=== PATIENT | female | born 1970 | race Caucasian/White ===

== ENCOUNTER 2024-01-24 00:17 | Day surgery (SDC) | payer BC, SELFPAY ==
[2024-01-04 08:49] VITALS: BMI 17.4
--- NOTE | 2024-01-22 15:35 | PC.NURSE ---
Patient called regarding upcoming procedure. Reviewed preop instructions, appointment times, and procedure prep.
[2024-01-24 12:40] VITALS: BP 124/68; PULSE 81; RESP 16; TEMP 36.4; O2SAT 100; BMI 15.9
[2024-01-24] MEDS: LACTATED RINGERS 1,000 ML 150 ML IV CONT (13:02)
--- NOTE | 2024-01-24 13:28 | P.PNAN_ITS ---
Anes - Initial Pre Proc Eval Procedure: Operation Date: 01/24/24 14:00 Proposed Procedures p Screening Colonoscopy - Sabas Moore MD Date/Time: 01/24/24 13:28 Surgeon: Sabas Moore MD Pre Op Diagnosis: neoplasm screening Patient Data Age: 53 Gender: F Height: 1.68 m Weight: 44.8 kg Last Vital Signs Temp 36.4 C L 01/24/24 12:40 Pulse 81 01/24/24 12:40 Resp 16 01/24/24 12:40 BP 124/68 01/24/24 12:40 Pulse Ox 100 01/24/24 12:40 O2 Del Method Room Air 01/24/24 12:40 Allergies Allergy/AdvReac Type Severity Reaction Status Date / Time No Known Allergies Allergy Verified 01/24/24 12:46 Home Medications Medication Instructions Recorded Confirmed Type No Home Medications 01/04/24 01/24/24 History Patient hx anesthesia problems: none Family hx anesthesia problems: none Results Review: All pre-operative results and documents have been reviewed as part of the pre-operative evaluation. 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 Gender identity (if verbalized by the patient): Female Sexual Orientation (if Verbalized by the Patient): Straight or Heterosexual Spiritual care concerns: No Anes - Eval Final PreProcedure Day of Procedure 01/24/24 13:28 Patient weight: thin Heart: regular rate and rhythm Lungs: clear to auscultation Airway: Mallampati scale class II Neurological: alert and oriented Last oral intake: >/= 8 hours ASA classification: II Emergent: no Anesthetic plan: proceed Anesthesia type and monitoring: general GIVS and standard monitoring Results Review: All pre-operative results and documents have been reviewed as part of the pre- operative evaluation. Informed Consent: The patient's anesthetic plan and its attendant risks and benefits were discussed with the patient/family/POA. Questions were solicited and answers provided to the satisfaction of the patient/family/POA.
--- NOTE | 2024-01-24 13:44 | PM.HPGS ---
History of Present Illness History of Present Illness Consent: Risks, benefits, and alternatives have been discussed and questions answered. Patient agrees to proceed with procedure. Chief complaint: neoplasm screening Narrative: Dixie Herzog is a 53 year old female here for first screening colonoscopy Review of Systems Constitutional: Constitutional: Denies headache(s) and Denies weakness Eyes: Eyes: Denies blurry vision ENT: Reports Normal hearing present, Denies headache(s) and Denies neck pain Cardiovascular: Cardiovascular: Denies chest pain and Denies dyspnea Respiratory: Respiratory: Denies dyspnea Gastrointestinal: Gastrointestinal: Reports no additional gastrointestinal complaints Genitourinary: Genitourinary: Denies dysuria Musculoskeletal: Musculoskeletal: Denies neck pain Integumentary/Breasts: Skin/Breast: Denies dry skin Neurologic: Reports Normal hearing present, Denies headache(s) and Denies weakness Psychiatric: Psychiatric: Denies anxiety Endocrine: Endocrine: Denies change in body appearance Hematologic/Lymphatic: Hematologic/Lymphatic: Denies easy bleeding Allergic/Immunologic: Allergic/Immunologic: Denies urticaria PMF Past Medical History Medical History MDD (major depressive disorder) Social History Social History Social History: Smoking status: Never smoker Second hand tobacco smoke exposure: No Alcohol intake: never Substance use: never Substance use type: does not use Lack of Transportation: No Lack of Food: Never True Current Housing: I Have Housing Concerned About Future Housing: No Difficulty Paying for Meds: No Currently Unemployed: No Education: Master's Degree or Higher Difficulty w/ Childcare or Family Care: No Living arrangements: with family 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 Gender identity (if verbalized by the patient): Female Sexual Orientation (if Verbalized by the Patient): Straight or Heterosexual Spiritual care concerns: No Meds Home Medications and Allergies Home Medications Medication Instructions Recorded Confirmed Type No Home Medications 01/04/24 01/24/24 History Allergies Allergy/AdvReac Type Severity Reaction Status Date / Time No Known Allergies Allergy Verified 01/24/24 12:46 Vital Signs Vital Signs - 24 hr 01/24/24 12:40 Temperature 97.5 F L Pulse Rate 81 Respiratory Rate 16 Blood Pressure 124/68 Pulse Oximetry 100 Oxygen Delivery Room Air Exam Const: General: comfortable and no acute distress HENMT: Face/Nose/Sinus: Normal nares present Eyes: General: appearance normal, both eyes and all related structures Neck: Neck: no JVD Resp: Auscultation: clear to auscultation bilaterally Cardio: Rate: regular rate Rhythm: regular rhythm GI: Inspection: non-distended GI Palp: Yes Soft to palpation Skin: General skin exam: normal color Neuro: General: gait normal Speech: normal speech Extrem: General: normal to inspection Psych: Mental Status: mental status grossly normal Assessment and Plan Assessment and plan (1) Colon cancer screening: Code(s): Z12.11 - Encounter for screening for malignant neoplasm of colon Status: Acute Assessment and Plan: colonoscopy
[2024-01-24 14:08] VITALS: BP 98/64; PULSE 67; RESP 19; O2SAT 100
[2024-01-24 14:18] VITALS: BP 99/67; PULSE 70; RESP 20; O2SAT 99
[2024-01-24 14:28] VITALS: BP 105/75; PULSE 62; RESP 24; O2SAT 100
== END 2024-01-24 14:33 | disposition home or self-care (01) ==
PROVIDERS: PCP Family Medicine; Visit Provider Internal Medicine Gastroenterology
PROC: 0DJD8ZZ Inspection of Lower Intestinal Tract, Via Natural or Artificial Opening Endoscopic (ICD-10-PCS; CPT 45378; principal; 2024-01-24 14:00)
DX: Z12.11 Encounter for screening for malignant neoplasm of colon (principal); F32.9 Major depressive disorder, single episode, unspecified
CPT/HCPCS: 45378; J2704; J7120

== ENCOUNTER 2024-04-30 15:03 | Outpatient (CLI) | payer BC, SELFPAY ==
--- NOTE | ~2024-04-30 | MM_ITS ---
EXAMINATION: MM screening addie BI w tyrone HISTORY: Screening TECHNIQUE: Craniocaudal and mediolateral oblique 3-D tomosynthesis images were obtained and synthetic 2-D images were generated. CAD analysis was submitted and interpreted. COMPARISON: 03/26/2018 BREAST PARENCHYMAL COMPOSITION: Dense: The breasts are extremely dense, which lowers the sensitivity of mammography. FINDINGS: There is no evidence of suspicious mass, calcification, or architectural distortion to sugg est malignancy in either breast. There has been no suspicious interval change. IMPRESSION: 1. No mammographic evidence of malignancy. 2. Recommend routine screening mammography in one year. BI-RADS Category 1: Negative Reviewed, dictated and finalized at location B.
== END 2024-04-30 15:04 ==
PROVIDERS: PCP Family Medicine; Visit Provider Family Medicine
DX: Z12.31 Encounter for screening mammogram for malignant neoplasm of breast (principal)
CPT/HCPCS: 77063; 77067